=== PATIENT | male | born 1965 | race Caucasian/White ===

== ENCOUNTER 2016-08-25 14:47 | Emergency (ER) | payer OTHER | END 2016-08-25 17:24 | disposition home or self-care (01) | LOC: ER 14:47 | DX: K85.90 Acute pancreatitis without necrosis or infection, unspecified (principal); E78.5 Hyperlipidemia, unspecified; I25.2 Old myocardial infarction; I10 Essential (primary) hypertension; E66.9 Obesity, unspecified | CPT/HCPCS: 36415; 96374; 96375; J1885; Q9967 ==